=== PATIENT | female | born 1975 | race Caucasian/White ===

== ENCOUNTER 2016-12-27 06:59 | Day surgery (SDC) | payer BC ==
[2016-12-26 10:03] VITALS: BMI 18.0
[~2016-12-27 06:59] MED LIST: LACTATED RINGERS 1,000 ML IV SCH; LIDOCAINE 1% 20 ML VIAL (10MG/ML) FOR IV START INTRADERMA PRN
[2016-12-27 07:21] VITALS: TEMP 97.2
[2016-12-27] MEDS ORDERED: LACTATED RINGERS 1,000 ML IV ONE (07:32)
[2016-12-27] MEDS ORDERED: PROPOFOL 10 MG/ML 20 ML VIAL IV ONE (07:35)
--- NOTE | 2016-12-27 08:03 | P.PCN ---
Date of Procedure: 12/27/16 Preoperative Diagnosis: Postoperative Diagnosis: Procedure(s) Performed: Brief history: Patient is a pleasant 41-year-old female, scheduled for an elective upper endoscopy as well as colonoscopy as a part of evaluation of intermittent heartburn for the last few years duration. She also has occasional rectal bleeding and change in bowel habits. Procedure performed: Esophagogastroduodenoscopy with biopsy Colonoscopy with biopsy Preoperative diagnosis: Heartburn Change in bowel habits and rectal bleeding Anesthesia: MAC Procedure: After informed consent was obtained from the patient was brought into the endoscopy unit and IV sedation was administered by anesthesia under continuous monitoring. Initially upper endoscopy was done. The Olympus GF 160 video endoscope was inserted inserted into the mouth and esophagus intubated without any difficulty and was gradually advanced into the stomach and duodenum and carefully examined. The bulb and second part of the duodenum appeared normal. The scope was then withdrawn into the stomach adequately insufflated with air and upon careful examination the antrum had mild mottling of the mucosa and biopsies were done from this area. The body, cardia and fundus appeared normal. The scope was then withdrawn into the esophagus. The GE junction was located at 40 cm to the incisors. It appeared regular with no erythema erosions or ulcerations. Rest of the esophagus appeared normal. Patient tolerated the procedure well. At this time the patient continued to remain sedation. Initial digital rectal examination was normal. Olympus CF 160 video colonoscope was then inserted into the rectum and gradually advanced to the cecum without any difficulty. Careful examination was performed as the scope was gradually being withdrawn. The prep was excellent. The cecum, ascending colon, transverse colon, descending colon, appeared normal. In the sigmoid colon there was a diminutive polyp measuring 2-3 mm in size that was removed by biopsy. The rest of the sigmoid colon and rectum appeared normal. Retroflexion was performed in the rectum and no lesions were noted. Patient tolerated the procedure well. Impression: 1. Upper endoscopy revealed minimal antral gastritis but no evidence of esophagitis or peptic ulcer disease 2. Colonoscopy revealed diminutive polyp measuring 2-3 mm in the sigmoid colon that was removed by biopsy. Rest of the colon appeared normal Recommendations: Findings of this examination were discussed with the patient as well as her family. She was advised to follow with the biopsy results. If the biopsy shows a tubular adenoma she can have a repeat colonoscopy in 5 years. Implants: Indications for Procedure: Operative Findings: Description of Procedure:
[2016-12-27 08:57] VITALS: BP 99/60; PULSE 72; RESP 18
== END 2016-12-27 09:01 | disposition home or self-care (01) ==
LOC: ORWHC2ENDO 06:59
PROVIDERS: ATTEND Internal Medicine Gastroenterology
DX: D12.5 Benign neoplasm of sigmoid colon (principal); K62.5 Hemorrhage of anus and rectum; K29.50 Unspecified chronic gastritis without bleeding; K21.9 Gastro-esophageal reflux disease without esophagitis; Z79.899 Other long term (current) drug therapy
CPT/HCPCS: 88305; 88342; 45380; 43239; J2704